=== PATIENT | female | born 1960 | race African-American/Black ===

== ENCOUNTER 2017-12-13 22:24 | Inpatient (IN) | payer MEDICARE, MEDICAID ==
[~2017-12-13] VITALS: Ht 157.5 cm; Wt 83.9 kg
[~2017-12-13 22:24] MED LIST: LISI1POW; SIMV5TAB53
[2017-12-14] MEDS ORDERED: NITROGLYCERIN OINT 1GM/INCH UDPKT TD SCH (00:45)
[2017-12-14] MEDS ORDERED: ASPIRIN 81MG TABLET PO SCH (00:45)
[2017-12-14 01:24] LABS: BASOPHILS % 0.9 % (0.0-2.0); EOSINOPHILS % 1.6 % (0.0-5.0); HEMATOCRIT. 39.5 % (36.0-48.0); LYMPHOCYTES % 36.5 % (20.0-50.0); MEAN CORPUSCULAR HEMOGLOBIN 30.1 pg (28.0-32.0); MEAN CORPUSCULAR VOLUME 91.2 fL (81.0-99.0); MEAN PLATELET VOLUME 9.2 fl (7.4-10.4); MONOCYTES % 7.4 % (2.0-8.0); NEUTROPHILS % 53.6 % (40.0-76.0); PLATELET 222 x1000/uL (130-400); RED BLOOD CELL COUNT 4.33 mill/uL (4.2-5.4); RED CELL DISTRIBUTION WIDTH 12.8 % (11.6-14.6)
[2017-12-14 01:41] LABS: CHLORIDE 107 mEq/L (98-107)
[2017-12-14] MEDS: MORPHINE SULFATE 2 MG/ML CPJ (NOT FOR IM USE) IV PRN ×2 (06:12→10:48)
[2017-12-14 09:15] VITALS: BP 168/80
[2017-12-14 09:24] VITALS: BP 168/86
[2017-12-14] MEDS: AMLODIPINE 10MG TABLET PO SCH (10:16)
[2017-12-14 12:00] VITALS: BP 130/70
[2017-12-14] MEDS ORDERED: HYDROCODONE/ACETAMINOPHEN 5/325MG TABLET PO PRN (13:30)
[2017-12-14] MEDS ORDERED: CLONIDINE 0.1MG TABLET PO PRN (13:30)
[2017-12-14] MEDS ORDERED: REGADENOSON 0.4 MG/5 ML IV NR (14:30)
[2017-12-14 16:00] VITALS: BP 114/69
[2017-12-14 20:00] VITALS: BP 128/83
[2017-12-15] VITALS: BP 141/64
[2017-12-15 04:00] VITALS: BP 146/98
[2017-12-15 08:00] VITALS: BP 147/90
[2017-12-15] MEDS ORDERED: REGADENOSON 0.4 MG/5 ML IV ONE (08:51)
[2017-12-15] MEDS: AMLODIPINE 10MG TABLET PO SCH (09:47)
[2017-12-15 12:00] VITALS: BP 136/70
[2017-12-15 12:47] VITALS: BP 136/70
== END 2017-12-15 13:50 | disposition home or self-care (01) | DRG 206 ==
LOC: EDBEDREQTM 12-14 01:45 → EDBEDREQ 12-14 01:45 → ER 12-14 01:55 → ENRESERV 12-14 07:27 → 7WST 12-14 09:00
PROVIDERS: ADMIT Internal Medicine; ATTEND Internal Medicine
DX: M94.0 Chondrocostal junction syndrome [Tietze] (principal); E66.9 Obesity, unspecified; E78.00 Pure hypercholesterolemia, unspecified; E78.5 Hyperlipidemia, unspecified; F17.290 Nicotine dependence, other tobacco product, uncomplicated; I10 Essential (primary) hypertension; I25.10 Atherosclerotic heart disease of native coronary artery without angina pectoris; J06.9 Acute upper respiratory infection, unspecified; Z82.49 Family history of ischemic heart disease and other diseases of the circulatory system; Z79.899 Other long term (current) drug therapy; Z68.33 Body mass index [BMI] 33.0-33.9, adult
CPT/HCPCS: 36415; 71045; 78452; 83880; 84484; 85379; 93005; 93017; 99285; A9500; C1893; J2270; J2785

== ENCOUNTER 2022-12-03 08:51 | Emergency (ER) | payer MEDICARE, MEDICAID ==
[~2022-12-03] VITALS: Ht 157.5 cm; Wt 91.0 kg
[~2022-12-03 08:51] MED LIST changes: -SIMV5TAB53; +SIMV5TAB58
[2022-12-03] MEDS ORDERED: MAGNESIUM/ALUMINUM HYDROXIDE/SIMETHICONE 30ML UDC PO STA (09:16)
[2022-12-03] MEDS ORDERED: ONDANSETRON 4MG ODT PO STA (09:16)
[2022-12-03] MEDS ORDERED: VISCOUS LIDOCAINE 2% 15 ML UDC PO STA (09:16)
[2022-12-03 10:16] LABS: BASOPHILS % 0.7 % (0.0-2.0); EOSINOPHILS % 0.8 % (0.0-5.0); HEMATOCRIT. 41.1 % (36.0-48.0); HEMOGLOBIN. 13.6 g/dL (12.0-16.0); LYMPHOCYTES % 33.9 % (20.0-50.0); MEAN CORPUSCULAR HEMOGLOBIN 29.9 pg (28.0-32.0); MEAN CORPUSCULAR VOLUME 90.7 fL (81.0-99.0); MEAN PLATELET VOLUME 9.7 fl (7.4-10.4); MONOCYTES % 7.2 % (2.0-8.0); NEUTROPHILS % 57.4 % (40.0-76.0); PLATELET 235 x1000/uL (130-400); RED BLOOD CELL COUNT 4.53 mill/uL (4.2-5.4); RED CELL DISTRIBUTION WIDTH 12.9 % (11.6-14.6)
[2022-12-03 10:20] LABS: CLARITY URINE CLEAR (CLEAR); COLOR URINE YELLOW (YELLOW); KETONES URINE TRACE (NEGATIVE); LEUKOCYTE ESTERASE URINE NEGATIVE (NEGATIVE); NITRITE URINE NEGATIVE (NEGATIVE); OCCULT BLOOD URINE TRACE (NEGATIVE); PROTEIN URINE NEGATIVE (NEGATIVE); UROBILINOGEN URINE 0.2 E.U./dL (0.2-1.0)
[2022-12-03 10:26] LABS: CHLORIDE 111 mEq/L (98-107)
[2022-12-03 11:50] VITALS: BP 220/110
== END 2022-12-03 11:51 | disposition home or self-care (01) ==
LOC: ER 08:51
DX: K29.70 Gastritis, unspecified, without bleeding (principal); I10 Essential (primary) hypertension; E78.00 Pure hypercholesterolemia, unspecified; Z98.890 Other specified postprocedural states
CPT/HCPCS: 36415; 71045; 80053; 81003; 83690; 84484; 85025; 93005; 99284; Q0162

== ENCOUNTER 2023-10-20 04:27 | Emergency (ER) | payer OTHER, MEDICAID ==
[~2023-10-20] VITALS: Ht 157.5 cm; Wt 85.7 kg
[2023-10-20 05:17] VITALS: O2SAT 99
[2023-10-20] MEDS ORDERED: ACETAMINOPHEN 325MG TABLET PO ONE (06:30)
[2023-10-20] MEDS ORDERED: IBUPROFEN 400MG TABLET PO ONE (06:30)
[2023-10-20 06:49] VITALS: BP 191/90
[2023-10-20] MEDS ORDERED: TOPUD PO (08:11)
[2023-10-20 09:06] VITALS: PULSE 84; RESP 14; TEMP 97.7
== END 2023-10-20 09:08 | disposition home or self-care (01) ==
LOC: ER 04:27
DX: M54.9 Dorsalgia, unspecified (principal); M79.602 Pain in left arm; E78.00 Pure hypercholesterolemia, unspecified; I10 Essential (primary) hypertension; Z98.890 Other specified postprocedural states
CPT/HCPCS: 72100; 99283

== ENCOUNTER 2024-07-09 10:20 | Emergency (ER) | payer MEDICARE, MEDICAID ==
[~2024-07-09] VITALS: Ht 154.9 cm; Wt 80.0 kg
[~2024-07-09 10:20] MED LIST changes: +TOPUD PO
[2024-07-09 10:30] VITALS: O2SAT 98
[2024-07-09] MEDS ORDERED: TETRACAINE 0.5% OPHTH DROPS 4ML RIGHTEYE ONE (12:00)
[2024-07-09] MEDS ORDERED: BALANCED SALT IRRIG SOLN 15ML IR ONE (12:00)
[2024-07-09] MEDS ORDERED: SULFACETAMIDE SODIUM 10% OPHTH DROPS 15ML RIGHTEYE ONE (12:00)
[2024-07-09] MEDS: BALANCED SALT IRRIG SOLN 15ML IR NR (14:08)
[2024-07-09] MEDS: TETRACAINE 0.5% OPHTH DROPS 4ML RIGHTEYE NR (14:08)
[2024-07-09] MEDS ORDERED: NAPR-681 MT (14:30)
[2024-07-09 14:41] VITALS: BP 145/87; PULSE 81; RESP 18; TEMP 36.89184; O2SAT 100
== END 2024-07-09 14:42 | disposition home or self-care (01) ==
LOC: ER 11:44
DX: K08.89 Other specified disorders of teeth and supporting structures (principal); E78.00 Pure hypercholesterolemia, unspecified; I10 Essential (primary) hypertension
CPT/HCPCS: 99283